=== PATIENT | female | born 1955 | race Caucasian/White ===

== ENCOUNTER → 2018-05-12 | Outpatient (CLI) | payer MEDICARE, OTHER | LOC: M.WC 09:55 | DX: T24.301A Burn of third degree of unspecified site of right lower limb, except ankle and foot, initial encounter (principal); T31.0 Burns involving less than 10% of body surface; F41.9 Anxiety disorder, unspecified; X08.8XXA Exposure to other specified smoke, fire and flames, initial encounter; Y93.89 Activity, other specified; Y92.89 Other specified places as the place of occurrence of the external cause; Y99.8 Other external cause status ==

== ENCOUNTER → 2018-05-17 | Outpatient (CLI) | payer MEDICARE, OTHER | LOC: M.WC 05:09 | DX: T24.231D Burn of second degree of right lower leg, subsequent encounter (principal); T31.0 Burns involving less than 10% of body surface; F41.0 Panic disorder [episodic paroxysmal anxiety]; F41.1 Generalized anxiety disorder; X11.8XXD Contact with other hot tap-water, subsequent encounter ==

== ENCOUNTER → 2018-05-23 | Outpatient (CLI) | payer MEDICARE, OTHER | LOC: M.WC 02:01 | DX: T24.301D Burn of third degree of unspecified site of right lower limb, except ankle and foot, subsequent encounter (principal); T31.0 Burns involving less than 10% of body surface; F41.9 Anxiety disorder, unspecified; X08.8XXD Exposure to other specified smoke, fire and flames, subsequent encounter ==

== ENCOUNTER 2019-06-06 13:22 | Emergency (ER) | payer MEDICARE, OTHER ==
[~2019-06-06] VITALS: Ht 182.9 cm; Wt 68.0 kg
[2019-06-06] MEDS ORDERED: SYSTANE 0.3-0.1 EACH OPHTHALMIC (13:33)
[2019-06-06] MEDS ORDERED: ESTRACE42.5 GM VAG (13:34)
[2019-06-06] MEDS ORDERED: ESTRIOL100 GM PO (13:34)
[2019-06-06] MEDS ORDERED: ATIVAN1 MG PO (13:35)
[2019-06-06] MEDS ORDERED: PREDNISONE 5 MG5 MG PO (15:00)
[2019-06-06 15:06] VITALS: BP 125/80
== END 2019-06-06 15:08 | disposition home or self-care (01) ==
LOC: M.ERS 13:22
DX: T78.40XA Allergy, unspecified, initial encounter (principal); K58.9 Irritable bowel syndrome, unspecified; F41.9 Anxiety disorder, unspecified; M79.7 Fibromyalgia; M85.80 Other specified disorders of bone density and structure, unspecified site; Z90.89 Acquired absence of other organs; Z90.49 Acquired absence of other specified parts of digestive tract; Z90.710 Acquired absence of both cervix and uterus; Z98.890 Other specified postprocedural states; Z88.2 Allergy status to sulfonamides; Z88.6 Allergy status to analgesic agent; Z91.041 Radiographic dye allergy status; Z88.8 Allergy status to other drugs, medicaments and biological substances; Z91.018 Allergy to other foods; Z88.7 Allergy status to serum and vaccine